=== PATIENT | male | born 1955 ===

== ENCOUNTER 2020-01-28 16:24 | Observation (INO) | payer OTHER ==
[~2020-01-28] VITALS: Ht 182.8 cm; Wt 66.7 kg
[2020-01-28 16:32] VITALS: BP 122/52
[2020-01-28 16:55] VITALS: BP 122/62
[2020-01-28 17:26] LABS: BASO # 0.1 10*3/uL (0.0-0.1); BASO % 0.8 % (0.0-1.0); EOS # 0.1 10*3/uL (0.0-0.4); EOS % 1.3 % (1.0-4.0); LYMPH # 1.4 10*3/uL (1.3-4.4); LYMPH % 21.9 % (27.0-41.0); MEAN CELL VOLUME 92.7 fl (80.0-94.0); MEAN CORPUSCULAR HGB 31.3 pg (27.0-31.0); MEAN CORPUSCULAR HGB CONC 33.7 g/dl (33.0-37.0); MEAN PLATELET VOLUME 9.7 fl (9.6-12.3); MONO # 0.4 10*3/uL (0.1-1.0); MONO % 5.9 % (3.0-9.0); NEUT # 4.4 10*3/uL (2.3-7.9); NEUT % 69.5 % (47.0-73.0); PLATELET COUNT AUTOMATED 186 10*3/uL (130-400); RED BLOOD COUNT 4.64 10*6/uL (4.50-5.90); WHITE BLOOD COUNT 6.4 10*3/uL (4.8-10.8)
[2020-01-28 17:37] LABS: ACT PARTIAL THROMBO TIME 29.5 SECONDS (20.0-32.1)
[2020-01-28 17:37] LABS: BACTERIA TRACE; BILIRUBIN NEGATIVE; BLOOD NEGATIVE (NEGATIVE); CLARITY CLEAR (CLEAR); COLOR YELLOW (YELLOW); GLUCOSE NEGATIVE; KETONE NEGATIVE; LEUKO ESTERASE NEGATIVE (NEGATIVE); NITRITE NEGATIVE (NEGATIVE); WBC 0-2 wbc/hpf (0-5)
[2020-01-28 17:41] LABS: ALBUMIN 3.6 gm/dl (3.1-4.5); ALKALINE PHOSPHATASE 72 U/L (45-117); BUN 17 mg/dl (7-24); CHLORIDE 107 mmol/L (98-107); CREATININE 1.14 mg/dL (0.70-1.30); LIPASE 149 U/L (73-393); POTASSIUM 4.4 mmol/L (3.5-5.1); SGOT/AST 11 IU/L (3-35); SGPT/ALT 20 U/L (12-78); SODIUM 139 mmol/L (136-145); TOTAL PROTEIN 7.5 gm/dL (6.4-8.2)
[2020-01-28 17:46] LABS: TROPONIN I < 0.015 ng/ml (<0.045)
[2020-01-28 18:01] VITALS: BP 120/64
[2020-01-28] MEDS ORDERED: ARICEPT5 M1 PO (18:04)
[2020-01-28 19:00] VITALS: BP 125/68
[2020-01-28 19:31] VITALS: BP 125/68
[2020-01-28 20:12] VITALS: BP 141/79
[2020-01-28] MEDS ORDERED: GINKGO BILOBA30 MG PO (20:48)
[2020-01-28] MEDS ORDERED: TYLENOL EXTRA500 M2 PO (20:49)
[2020-01-29] VITALS: BP 111/61
[2020-01-29 06:18] LABS: BASO # 0.1 10*3/uL (0.0-0.1); BASO % 1.1 % (0.0-1.0); EOS # 0.1 10*3/uL (0.0-0.4); EOS % 2.2 % (1.0-4.0); HEMATOCRIT 41.9 % (42.0-52.0); LYMPH # 1.8 10*3/uL (1.3-4.4); LYMPH % 34.3 % (27.0-41.0); MEAN CELL VOLUME 95.2 fl (80.0-94.0); MEAN CORPUSCULAR HGB 30.7 pg (27.0-31.0); MEAN CORPUSCULAR HGB CONC 32.2 g/dl (33.0-37.0); MONO # 0.5 10*3/uL (0.1-1.0); MONO % 8.6 % (3.0-9.0); NEUT # 2.9 10*3/uL (2.3-7.9); NEUT % 53.2 % (47.0-73.0); PLATELET COUNT AUTOMATED 169 10*3/uL (130-400); RED CELL DISTRI WIDTH 13.4 % (0-14.5); WHITE BLOOD COUNT 5.4 10*3/uL (4.8-10.8)
[2020-01-29 06:42] LABS: BUN 18 mg/dl (7-24); CHLORIDE 106 mmol/L (98-107); CHOLESTEROL 161 mg/dL (<200); CREATININE 0.97 mg/dL (0.70-1.30); HDL CHOLESTEROL 24 mg/dl (40-60); LDL CHOLESTEROL 110 mg/dL (9-159); POTASSIUM 4.1 mmol/L (3.5-5.1); SODIUM 139 mmol/L (136-145); TRIGLYCERIDES 136 mg/dl (<150); VLDL CHOLESTEROL 27 mg/dL (6-40)
[2020-01-29 08:00] VITALS: BP 102/50
[2020-01-29 12:00] VITALS: BP 112/59
[2020-01-29] MEDS ORDERED: HYDROCODONE-AC1 EAC1 PO (13:13)
== END 2020-01-29 14:26 | disposition home or self-care (01) ==
LOC: ED 16:24 → 4E 19:00 → EDHOLD 19:00 → 4E 19:12
PROVIDERS: Nurse Practitioner Family; Student in an Organized Health Care Education/Training Program; ADMIT Internal Medicine; ATTEND Internal Medicine
DX: R07.89 Other chest pain (principal); M25.551 Pain in right hip; E83.41 Hypermagnesemia; E44.0 Moderate protein-calorie malnutrition; R00.1 Bradycardia, unspecified; D72.810 Lymphocytopenia; R73.9 Hyperglycemia, unspecified; R41.3 Other amnesia; J44.9 Chronic obstructive pulmonary disease, unspecified; F17.210 Nicotine dependence, cigarettes, uncomplicated